=== PATIENT | male | born 1970 | race Two or more races ===

== ENCOUNTER 2021-02-21 22:56 | Emergency (ER) | payer SELFPAY ==
[~2021-02-21] VITALS: Ht 167.6 cm; Wt 81.6 kg
[2021-02-21 22:58] VITALS: BP 152/92
[2021-02-22] MEDS ORDERED: TETANUS-DIPTH-ACEL PERTUSSIS 0.5ML SYR Tdap IM ONE (02:15)
[2021-02-22] MEDS ORDERED: cefTRIAXone SOD 1,000 MG VL IM ONE (02:15)
[2021-02-22] MEDS ORDERED: BACITRACIN-POLYMYXIN B TOPICAL OINT UD TOP ONE (03:00)
[2021-02-22] MEDS ORDERED: BACITRACIN TOP OINT 1 UD PKG TOP ONE (03:15)
== END 2021-02-22 03:39 | disposition home or self-care (01) ==
LOC: ER 23:04
DX: S71.111A Laceration without foreign body, right thigh, initial encounter (principal); X58.XXXA Exposure to other specified factors, initial encounter; Y93.89 Activity, other specified; Y92.89 Other specified places as the place of occurrence of the external cause; Y99.8 Other external cause status
CPT/HCPCS: 12002; 73552; 90471; 90715; 96372; 99284; J0696

== ENCOUNTER 2021-02-24 11:36 | Emergency (ER) | payer SELFPAY ==
[~2021-02-24] VITALS: Ht 167.6 cm; Wt 81.6 kg
[2021-02-24 12:20] VITALS: BP 133/95
== END 2021-02-24 12:27 | disposition home or self-care (01) ==
LOC: ER 11:36
DX: S71.111D Laceration without foreign body, right thigh, subsequent encounter (principal); X58.XXXD Exposure to other specified factors, subsequent encounter